=== PATIENT | female | born 2005 | race Two or more races ===

== ENCOUNTER 2023-07-15 19:24 | Emergency (ER) | payer SELFPAY ==
[~2023-07-15] VITALS: Ht 160 cm; Wt 59.1 kg
[2023-07-15 20:05] VITALS: BP 99/75; PULSE 76; RESP 19; O2SAT 99
== END 2023-07-16 00:01 | disposition left against medical advice (07) ==
LOC: ER 19:24
DX: M79.662 Pain in left lower leg (principal); M79.661 Pain in right lower leg; Z53.21 Procedure and treatment not carried out due to patient leaving prior to being seen by health care provider

== ENCOUNTER 2023-11-08 01:58 | Emergency (ER) | payer BC, OTHER | END 2023-11-08 05:02 | disposition left against medical advice (07) | LOC: ER 01:58 | DX: R41.82 Altered mental status, unspecified (principal); Z53.21 Procedure and treatment not carried out due to patient leaving prior to being seen by health care provider ==